=== PATIENT | male | born 1940 | race Caucasian/White ===

== ENCOUNTER 2017-06-06 05:09 | Inpatient (IN) | payer OTHER, MEDICARE ==
[2017-05-21 08:41] LABS: HEMATOCRIT 44.6 % (42.0-52.0); MCH 30.3 pg (26.0-34.0); MCHC 33.7 g/dL (28.0-37.0); MCV 89.8 fL (80.0-100.0); RBC 4.97 mil/uL (4.50-6.00); RDW 13.3 % (10.5-14.5)
[2017-05-21 08:43] LABS: URINE BILIRUBIN NEGATIVE (Negative); URINE BLOOD NEGATIVE (Negative); URINE COLOR YELLOW; URINE GLUCOSE-RANDOM* NEGATIVE (Negative); URINE KETONES NEGATIVE (Negative); URINE LEUKOCYTES-REFLEX NEGATIVE (Negative); URINE PROTEIN (DIPSTICK) NEGATIVE (Negative); URINE SPECIFIC GRAVITY >= 1.030 (1.003-1.035); URINE UROBILINOGEN 0.2 E.U./dl (0.2-1.0)
[2017-05-21 08:55] LABS: PROTIME 10.3 Seconds (9.3-11.4)
[2017-05-21 08:58] LABS: ALBUMIN 3.8 g/dL (3.4-5.0); CALCIUM 9.6 mg/dL (8.5-10.1); POTASSIUM 4.5 mmol/L (3.5-5.1)
[~2017-06-06] VITALS: Ht 180.3 cm; Wt 81.6 kg
[2017-06-06] VITALS (12 sets, daily range): BP systolic 127–145; BP diastolic 69–95
--- NOTE | ~2017-06-06 | O ---
[facility] [place] [address] OPERATIVE REPORT Name: EDNA ANDRADE Room #: 403-P ADM IN M.R.#: [id number] Admission: 06/06/17 Attend Phys: Delmar Bravo MD Discharge: Date of : 40 Report #: [id number] THIS REPORT FOR: //name// CC: Dev Bravo DATE OF SERVICE: 06/06/2017 PREOPERATIVE DIAGNOSIS: End-stage degenerative arthritis, right knee with varus malalignment and mild flexion contracture. 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 PROCEDURE: Right total knee arthroplasty. SURGEON: Delmar Bravo M.D. INDICATIONS: This healthy, active, fit 76-year-old gentleman presents with progressive right knee pain with varus malalignment and mild flexion contracture. Clinical exam and x-rays confirm rather significant degenerative change with significant medial compartment collapse. We discussed treatment options and risks and benefits. He and his family understand well and wish to proceed with right total knee arthroplasty. DESCRIPTION OF PROCEDURE: The patient was taken to the operating room, where he was placed under general anesthesia. Prophylactic intravenous antibiotics were administered. The right knee and leg were meticulously prepped and draped. A thigh tourniquet was inflated to 300 mmHg. An anterior longitudinal skin incision was made and carried through the medial retinaculum. The patella was reflected laterally. All 3 compartments demonstrated significant degenerative change. This was more severe in the medial compartment and moderate at the patella, with less severe damage in the lateral side. The [employer] knee system was utilized using the [email or web address] knee system. Intramedullary guides were used on both the femur and the tibia. The femur was cut in 5 degrees of valgus. The tibia was cut perpendicular long axis to the bone. Sufficient bone was resected to correct the mild preoperative flexion contracture and the varus malalignment. The femur seemed best suited for a size 5 femoral component. The tibia was also best suited for a size 5 tibial component. A trial reduction was performed and an 11 mm polyethylene insert resulted in satisfactory alignment, range of motion and stability. The patellar surface was resected. 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 There was some minimal movement across the synostosis, but this fragment seems generally stable and is far enough lateral that it really does not impact the patellar button. I did trim some of this so that there would be no impingement, but felt it was probably better to leave this in place rather than take that area down and risk [address] [address] OPERATIVE REPORT Name: EDNA ANDRADE Room #: 403-P [facility] IN M.R.#: [id number] Admission: 06/06/17 Attend Phys: Delmar Bravo MD Discharge: Date of : 40 Report #: [id number] some patellar instability. The much larger medial portion of the patella is stable and after the surface was resected, a 35 mm patellar button seemed to fit nicely. This was applied with appropriate anchor holes. The knee was then passed through a full arc of motion. The patella tracked nicely and appeared to be stable. The knee seemed to be in improved alignment with good correction of the varus malposition and the preoperative flexion contracture. At this point, the trial components were removed. The bony surfaces were thoroughly irrigated and dried. The intramedullary canal was blocked with a bone block on both the femur and the tibia. The surfaces were then thoroughly dried. Methyl methacrylate cement was mixed. This was injected into the porous surface of the proximal tibia. The [employer] Legion size 5 right tibial component was then impacted into position. It seated nicely and appeared to be secure. An 11 mm polyethylene insert was snapped into place. It also seated nicely and appeared to be secure. The size 5 right femoral component was then impacted on to the distal femur in a press-fit noncemented fashion. It seated nicely and appeared to be secure. The 35 mm patellar button was cemented into place using appropriate anchor holes and the patella was secured with a patellar clamp until the cement had hardened. All excess cement was removed from around the margins of the implants. Once the cement had hardened, range of motion, alignment and stability were once again assessed and felt to be satisfactory. The joint was copiously irrigated. The tourniquet was deflated after a total tourniquet time of 59 minutes. Good hemostasis was noted. A single Hemovac was left in the wound exiting through a lateral separate stab incision. The fascia was then closed with multiple #1 Vicryl sutures. The subcutaneous tissues were closed with 0 Monocryl and the skin was closed with skin kameron. A sterile dressing was applied. The patient was awakened and returned to the recovery room in good condition. <ELECTRONICALLY SIGNED> By: Delmar Bravo MD 06/07/17 1621 [id number] Delmar Bravo MD /nt
--- NOTE | ~2017-06-06 | D ---
[facility] [place] [address] DISCHARGE SUMMARY Name: EDNA ANDRADE Room #: 403-P ADM IN M.R.#: [id number] Admission: 06/06/17 Attend Phys: Delmar Bravo MD Discharge: Date of : 40 Report #: [id number] THIS REPORT FOR: //name// CC: Dev Bravo DATE OF SERVICE: 06/09/2017 FINAL DIAGNOSES: End-stage degenerative arthritis, right knee. OPERATION PROCEDURE: Right total knee arthroplasty. HISTORY OF PRESENT ILLNESS: This very fit, active, fully independent 76-year-old gentleman complained of progressive right knee pain. He has had problems for some time and we had planned previously for total knee replacement. This was postponed due to other medical issues. Those have resolved and he was admitted at this time for right total knee replacement. HOSPITAL COURSE: The patient was admitted and taken to the operating room on June 06. He underwent right total knee replacement, which he tolerated nicely. Postoperatively, he had some difficulty with pain management in the first 24 hours. This was improved with IV morphine and then advanced to oral analgesics. His knee wound seems to be healing nicely without any significant problems. He was able to resume a regular diet. He has made good progress with therapy and now seems to be safe and reasonably independent with a walker for ambulation. He seems safe and ready for hospital discharge today on June 09. DISCHARGE MEDICATIONS: Include hydrocodone 10/325 one q. 4 hours p.r.n. for pain and Xarelto 10 mg once daily. He will continue home therapy directed by [facility]. I anticipate gradually advancing activity at home and then move to outpatient therapy when he is safe for more activity and independent for travel. I have asked the patient and his to call me should there be any problems or questions. We can certainly see him back in the office in 1 week for routine followup and discussion, however, we will plan to see him back in 2 weeks for suture removal. By: 1100 1122 Delmar Bravo MD /nt
[~2017-06-06 05:09] MED LIST: ASPIR 8181 MG PO; CENTRUM SILVER1 EAC2 PO; CITRACAL + BON1 EACH PO; FISH OIL 1,001000 M2 PO; FISH OIL WITH1 EACH PO; FLAX SEED OIL1000 MG PO; GLUCOSAMINE &1 EACH PO; KRILL OIL500 MG PO; LAMISIL250 MG PO; LIPITOR 10 MG10 M1 PO; MOBIC15 MG PO; NORCO 10-325 T1 EACH PO; OMEPRAZOLE 20 M20 M1 PO; PRILOSEC20 MG PO; TOPROL XL25 MG PO; VITAMIN C500 M1 PO; [UNRECOGNIZED DRUG - OTHER] PO
[2017-06-07 03:59] LABS: HEMATOCRIT 37.4 % (42.0-52.0); HEMOGLOBIN 12.5 gm/dL (14.0-18.0); MCH 30.6 pg (26.0-34.0); MCHC 33.5 g/dL (28.0-37.0); MCV 91.5 fL (80.0-100.0); RBC 4.09 mil/uL (4.50-6.00); RDW 13.6 % (10.5-14.5); WBC 9.5 thou/uL (4.0-11.0)
[2017-06-07 04:05] VITALS: BP 164/68
[2017-06-07 08:25] VITALS: BP 168/75
[2017-06-07 15:58] VITALS: BP 185/84
[2017-06-07 19:18] VITALS: BP 188/89
[2017-06-08 04:26] VITALS: BP 176/90
[2017-06-08 06:32] LABS: HEMATOCRIT 37.7 % (42.0-52.0); HEMOGLOBIN 12.7 gm/dL (14.0-18.0); MCH 30.4 pg (26.0-34.0); MCHC 33.7 g/dL (28.0-37.0); MCV 90.1 fL (80.0-100.0); RBC 4.19 mil/uL (4.50-6.00); RDW 13.2 % (10.5-14.5); WBC 10.3 thou/uL (4.0-11.0)
[2017-06-08 08:00] VITALS: BP 166/88
[2017-06-08] MEDS ORDERED: XARELTO10 MG PO (08:46)
[2017-06-08 16:00] VITALS: BP 142/75
[2017-06-08 18:25] VITALS: BP 142/75
[2017-06-08 20:03] VITALS: BP 146/94
[2017-06-09 04:24] VITALS: BP 166/88
[2017-06-09 06:04] LABS: HEMATOCRIT 34.2 % (42.0-52.0); HEMOGLOBIN 11.7 gm/dL (14.0-18.0); MCH 30.4 pg (26.0-34.0); MCHC 34.2 g/dL (28.0-37.0); RBC 3.84 mil/uL (4.50-6.00); RDW 13.2 % (10.5-14.5); WBC 9.4 thou/uL (4.0-11.0)
[2017-06-09 07:39] VITALS: BP 155/90
[2017-06-09 10:53] VITALS: BP 155/90
[2017-06-09 11:06] VITALS: BP 155/90
== END 2017-06-09 13:58 | disposition home health service (06) | DRG 470 ==
LOC: TBA 05:09 → 4N 05:09 → PRE 05:58 → 4N 09:44 → PRE 10:36 → 4N 06-09 13:58
PROVIDERS: Orthopaedic Surgery
PROC: 0SRC0J9 Replacement of Right Knee Joint with Synthetic Substitute, Cemented, Open Approach (ICD-10-PCS; principal; 2017-06-06)
DX: M17.11 Unilateral primary osteoarthritis, right knee (principal); G47.30 Sleep apnea, unspecified; E78.00 Pure hypercholesterolemia, unspecified; I10 Essential (primary) hypertension; K21.9 Gastro-esophageal reflux disease without esophagitis; Z88.6 Allergy status to analgesic agent; Z88.2 Allergy status to sulfonamides; Z79.82 Long term (current) use of aspirin; Z79.899 Other long term (current) drug therapy; Z85.46 Personal history of malignant neoplasm of prostate; Z90.79 Acquired absence of other genital organ(s); Z98.42 Cataract extraction status, left eye; Z98.41 Cataract extraction status, right eye; Z87.891 Personal history of nicotine dependence; Z88.8 Allergy status to other drugs, medicaments and biological substances
CPT/HCPCS: 50010; 50101; 50415; 50954; 51130; 51225; 51412; 51771; 53364; 56525; 62110; 62900; 70005